=== PATIENT | male | born 1995 | race Caucasian/White ===

== ENCOUNTER 2022-01-25 06:50 | Emergency (ER) | payer OTHER ==
[~2022-01-25] VITALS: Ht 177.8 cm; Wt 71.7 kg
--- NOTE | 2022-01-25 07:10 | NUR ---
Dr Stein at the bedside for MSE.
[2022-01-25] MEDS ORDERED: KETOROLAC TROMETHAMINE 15 MG INJ IM ONE (07:15)
[2022-01-25] MEDS ORDERED: KETOROLAC TROMETHAMINE 15 MG INJ ONE (07:25)
[2022-01-25] MEDS ORDERED: IBUP-1955 PO (08:14)
--- NOTE | 2022-01-25 08:26 | NUR ---
Pt states feeling better and med is helping.
--- NOTE | 2022-01-25 09:07 | NUR ---
Patient discharged to home in stable condition. Written and verbal after care instructions given. Patient verbalizes understanding of instructions. Stressed follow up or return to ER for worsening s/s.
[2022-01-25 09:11] VITALS: BP 122/59
== END 2022-01-25 09:12 | disposition home or self-care (01) ==
LOC: EDBD 06:50 → ER 07:04
DX: S09.90XA Unspecified injury of head, initial encounter (principal); M54.2 Cervicalgia; Z79.1 Long term (current) use of non-steroidal anti-inflammatories (NSAID); V89.2XXA Person injured in unspecified motor-vehicle accident, traffic, initial encounter; Y93.89 Activity, other specified; Y92.89 Other specified places as the place of occurrence of the external cause; Y99.8 Other external cause status
CPT/HCPCS: 72050; 96372; 99283; J1885; A4663